=== PATIENT | female | born 1975 | race African-American/Black ===

== ENCOUNTER 2024-09-29 00:12 | Emergency (ER) | payer MEDICAID ==
[~2024-09-29] VITALS: Ht 152.4 cm; Wt 82.0 kg
[2024-09-29 00:15] VITALS: O2SAT 100
[2024-09-29 00:17] VITALS: BP 187/103; PULSE 118; RESP 18; TEMP 36.9; O2SAT 99
== END 2024-09-29 03:30 | disposition left against medical advice (07) ==
LOC: ER 01:08
DX: R21 Rash and other nonspecific skin eruption (principal); Z53.21 Procedure and treatment not carried out due to patient leaving prior to being seen by health care provider
CPT/HCPCS: A4606